=== PATIENT | male | born 1945 | race Caucasian/White ===

== ENCOUNTER 2019-10-04 21:00 | Inpatient (IN) ==
--- NOTE | 2019-10-04 22:03 | Diag Imaging Result Doc PS360 ---
EXAM: CHEST-2 VIEWS - 10/04/2019 HISTORY: flu like sx TECHNIQUE: Chest two views COMPARISON: 03/15/2019 FINDINGS: Heart size is normal. There are COPD/emphysematous changes. There is mild prominence of infrahilar markings compared to prior which may relate to COPD exacerbation or mild pneumonitis. There is no dense consolidation, pleural effusion, or pneumothorax identified. IMPRESSION: COPD/emphysematous changes. Mild prominence of infrahilar markings compared to prior which may relate to COPD exacerbation or pneumonitis. No dense consolidation. Electronically signed by Eris Newberry 10/04/2019 10:01 PM
[2019-10-04 22:20] LABS: BASO# 0.01 X1000 (0.0-0.2); BASO% 0.1 % (0.0-0.8); EOS# 0.01 X1000 (0.0-0.7); EOS% 0.1 % (0.0-10.0); HEMATOCRIT 44.1 % (42.0-52.0); HEMOGLOBIN 14.6 g/dL (14.0-18.0); IMM GRAN# 0.03 X1000 (0.0-0.04); IMM GRAN% 0.3 % (0.0-0.5); LYMPH# 0.63 X1000 (1.2-3.4); MCH 32.8 PG (27-31); MCHC 33.1 g/dL (33-37); MCV 99.1 FL (81-99); MONO# 0.66 X1000 (0.11-0.59); MONO% 6.3 % (1.7-9.3); MPV 10.4 FL (7.4-10.4); NEUT# 9.08 X1000 (1.4-6.5); NEUT% 87.2 % (42.2-75.2); PLT 118 X1000 (130-400); RBC 4.45 XMIL (4.7-6.1); RDW 13.2 % (11.5-14.5); WBC 10.42 X1000 (4.8-10.8)
[2019-10-04 22:35] LABS: AGAP 13; ALBUMIN 4.4 g/dL (3.5-5.0); ALKALINE PHOSPHATASE 90 U/L (32-122); BUN 20 mg/dL (8-22); CHLORIDE 103 mmol/L (98-107); COSMO 281; ESTIMATED GFR > 60; GLUCOSE 110 mg/dL (70-104); GOT 16 U/L (10-34); GPT 10 U/L (10-44); POTASSIUM 4.2 mmol/L (3.5-5.1); SODIUM 139 mmol/L (136-145); TCO2 23 mmol/L (25-35); TOTAL PROTEIN 7.7 g/dL (6.3-8.3)
[2019-10-04 22:37] LABS: INFLUENZA A NEGATIVE (NEGATIVE); INFLUENZA B NEGATIVE (NEGATIVE)
[2019-10-04] MEDS ORDERED: DUONEB (A & A) INH ONE (23:04)
[2019-10-04] MEDS ORDERED: MOTRIN PO ONE (23:04)
[2019-10-04] MEDS ORDERED: NS 1,000 ML IV ONE ×2 (23:05)
[2019-10-04] MEDS ORDERED: NS 1,000 ML ONE (23:12)
[2019-10-04] MEDS ORDERED: NS 50 ML ONE (23:13)
[2019-10-04] MEDS ORDERED: ROCEPHIN 1 GM in NS 50 ML IV SCH (23:15)
[2019-10-04] MEDS ORDERED: ZITHROMAX 500 MG/NS 500 MG/250 ML IVPB IV SCH (23:15)
[2019-10-04 23:50] LABS: BILIRUBIN URINE NEGATIVE (NEGATIVE); BLOOD URINE 4+ (NEGATIVE); CLARITY CLEAR (CLEAR); COLOR YELLOW; GLUCOSE URINE NEGATIVE (NEGATIVE); KETONE URINE TRACE mg/dL (NEGATIVE); LEUKOCYTES URINE NEGATIVE (NEGATIVE); NITRITE URINE NEGATIVE (NEGATIVE); PROTEIN URINE 1+(30 mg/dL) mg/dL (NEGATIVE); SP GRAVITY URINE 1.015; UROBILINOGEN URINE NORMAL
[2019-10-04 23:56] LABS: URINE BACTERIA 2+ /HFP; URINE RBC 20-40 /HPF (<10); URINE SOURCE CLEAN CATCH; URINE YEAST PRESENT /HPF
[2019-10-04 23:58] LABS: URINE WBC <10 /HPF (<10)
--- NOTE | 2019-10-05 00:34 | PROVIDER DOCUMENTATION ---
This chart was entered by James Barfield Scribe, acting as scribe for Sridevi Stacy MD. HPI-General Adult - General Chief Complaint: Flu Symptoms Stated Complaint: FLU LIKE SYMPTOMS Time Seen by Provider: 10/04/19 22:11 Source: patient Allergies/Adverse Reactions: Patient Allergies Allergy/AdvReac Type Severity Reaction Status Date / Time No Known Allergies Allergy Verified 10/04/19 22:05 Home Medications: Home Medication List Medication Instructions Recorded Confirmed Last Taken Type Sildenafil [Viagra] 50 mg PO PRN PRN #14 tablet 03/04/16 10/21/17 Unknown Rx Ondansetron [Zofran] 4 mg PO Q6H PRN PRN #20 tablet 07/11/16 10/21/17 Unknown Rx Tramadol [Ultram] 50 mg PO Q8HR #20 tablet 07/11/16 10/21/17 Unknown Rx Gabapentin 300 mg PO TID #90 capsule 07/18/16 10/21/17 Unknown Rx Ipratropium/Albuterol INH 1 puff INH RTQ6H #1 inhaler 10/20/16 10/21/17 Unknown Rx [Combivent Respimat Inhaler] Mometasone Furoate 220 Mcg INH 1 puff INH RTBID #1 inhaler 10/20/16 10/21/17 Unknown Rx [Asmanex 220 Microgm Inhaler] Amoxicillin/Pot Clavulanate 875 mg PO Q12HR #14 tab 10/23/17 Unknown Rx [Augmentin] Folic Acid 1 mg PO DAILY #90 tab 10/23/17 Unknown Rx Guaifenesin/Pse E.r. [Mucinex D] 1 each PO BID tablet 10/23/17 Unknown Rx Meclizine [Antivert] 25 mg PO TID PRN PRN #30 tab 10/23/17 Unknown Rx Oxycodone HCl/Acetaminophen 1 ea PO Q4-6H PRN PRN #20 tab 10/23/17 Unknown Rx [Percocet 10-325 mg Tablet] Thiamine [Vitamin B-1] 100 mg PO DAILY #30 tab 10/23/17 Unknown Rx Amoxicillin 875 mg PO BID #20 tab 03/15/19 Unknown Rx Prednisone 10 mg PO BID #8 tab 03/15/19 Unknown Rx - History of Present Illness -Gen Adult Nature of Presenting Problems: Pt is a 74 yom who presents to the ED with a CC of cold symptoms. Pt complains of a cough, body aches, and sinus congestion for three days. Pt reports taking over the counter medication for his symptoms and denies any relief. He endorses a cough with greenish sputum. He is current every day smoker. He denies any nausea, vomiting, diarrhea or dysuria. Location of Pain/Injury: reports: generalized Pain Radiation: reports: no radiation Quality of Pain: reports: aching Severity: reports: mild Onset/Duration: reports: 3 days ago Timing: reports: still present Associated Symptoms: reports: cough, muscle aches, sinus congestion/drainage Similar Symptoms Previously?: Yes Recently seen or treated by another doctor?: No Review of Systems - Adult - REVIEW OF SYSTEMS - ADULT Constitutional: reports: see HPI Eyes: reports: no symptoms reported Ears, Nose, Mouth & Throat: reports: see HPI, sinus problem Cardiovascular: reports: no symptoms reported Respiratory: reports: see HPI, cough, excessive sputum production Gastrointestinal: reports: abdominal pain Genitourinary: reports: no symptoms reported Musculoskeletal: reports: see HPI, muscle aches Integumentary: reports: no symptoms reported Neurological: reports: no symptoms reported Psychiatric: reports: no symptoms reported Endocrine: reports: no symptoms reported Hematologic/Lymphatic: reports: no symptoms reported Allergic/Immunologic: reports: no symptoms reported All Other Systems: Reviewed and Negative Past History - Adult - PAST MEDICAL HISTORY-ADULT Review of Records: reports: Old Records Reviewed, Nursing Assessment Review, Medications Reviewed, Social history reviewed & non-contributory. Major Childhood Illnesses: reports: denies history Cardiovascular: reports: denies history Respiratory: reports: bronchitis, COPD Gastrointestinal: reports: denies history Obstetrical/Gynecological: reports: denies history Genitourinary: reports: denies history, other (urgency). denies: prostatitis, prostate cancer Musculoskeletal: reports: other (chronic joint aches in neck and lower back). denies: chronic pain Neurological: reports: denies history Psychiatric: reports: denies history Endocrine/Immune: reports: denies history Other Conditions: reports: denies history - PRIOR SURGERIES/PROCEDURES Surgical/Procedure History: reports: orthopedic (extremity) - IMMUNIZATION STATUS Childhood Immunizations: See Nurse Assessment Flu Vaccine: See Nurse Assessment - FAMILY HISTORY Family History: reviewed, not pertinent - SOCIAL HISTORY Smoking: cigarettes, greater than 1 pack/day Substance Use: alcohol Alcohol Use Frequency: occasionally Physical Exam-General - PHYSICAL EXAM-ADULT Initial Vital Signs Reviewed: Yes - CONSTITUTIONAL General Appearance: alert, no apparent distress - EYES Eyes: PERRL/EOMI, pink conjunctivae - HEAD, EARS, NOSE, MOUTH & THROAT HENMT: normocephalic/atraumatic, moist mucous membranes - NECK Neck: non-tender, full range of motion - RESPIRATORY Respiratory: chest non-tender, decreased rate - CARDIOVASCULAR Cardiovascular: normal peripheral pulses, regular rate, rhythm, no edema - GASTROINTESTINAL (ABDOMEN) Abdominal Exam: non tender, soft - MUSCULOSKELETAL Extremity: normal range of motion, non-tender - SKIN Integumentary: normal color, warm/dry - NEUROLOGIC Neurologic: grossly normal, no motor/sensory deficits - PSYCHIATRIC Psych/Mental Status: normal mood/affect, normal thought content, normal thought process, oriented x 3 Progress - PLAN OF CARE/RESULTS Progress/Plan/Lab Results: Vital Signs - 8 hr 10/04/19 22:01 Temperature 100.6 F H Pulse Rate 95 H Respiratory Rate 20 Blood Pressure 168/82 O2 Sat by Pulse Oximetry 94 L Laboratory Results - last 24 hr 10/04/19 10/04/19 22:00 22:08 WBC 10.42 RBC 4.45 L Hgb 14.6 Hct 44.1 MCV 99.1 H MCH 32.8 H MCHC 33.1 RDW Std Deviation 13.2 Plt Count 118 L MPV 10.4 Immature Gran % (Auto) 0.3 Neut % (Auto) 87.2 H Lymph % (Auto) 6.0 L [place] % (Auto) 6.3 Eos % (Auto) 0.1 Baso % (Auto) 0.1 Immature Gran # (Auto) 0.03 Neut # (Auto) 9.08 H Lymph # (Auto) 0.63 L [place] # (Auto) 0.66 H Eos # (Auto) 0.01 Baso # (Auto) 0.01 Group A Strep Rapid NEGATIVE Orders Category Date Time Status CHEST-2 VIEWS [RAD] Stat Exams 10/04/19 21:42 Completed CBC WITH ELECTRONIC DIFF [HEME] Stat Lab 10/04/19 22:08 Completed COMPREHENSIVE METABOLIC PANEL [CHEM] Stat Lab 10/04/19 22:[address] Stat Lab 10/04/19 22:[address] Stat Lab 10/04/19 22:00 Received LACTATE, PLASMA [CHEM] Stat Lab 10/04/19 22:08 Received Patient is 74 y/o and initial SpO2 is 92% on room air. He was febrile to 100.6. He does not have a WBC but given his hx of COPD and his age and CXR concerning for COPD and possible pneumonitis offered admission vs outpatient treatment. He decided he wanted to stay in the hospital. His urine is negative and flu and strep were negative as well. No other acute abnormalities. Spoke to [facility] Vandana Jon who accepted patient for admission on behalf of Dr Avina. Patient stable for floor. Result Diagrams: 10/04/19 22:08 10/04/19 22:08 - XRAY 1 XRAY Study: Chest Impression: See EMR Report ( EXAM: CHEST-2 VIEWS - 10/04/2019 HISTORY: flu like sx TECHNIQUE: Chest two views COMPARISON: 03/15/2019 FINDINGS: Heart size is normal. There are COPD/emphysematous changes. There is mild prominence of infrahilar markings compared to prior which may relate to COPD exacerbation or mild pneumonitis. There is no dense consolidation, pleural effusion, or pneumothorax identified. IMPRESSION: COPD/emphysematous changes. Mild prominence of infrahilar markings compared to prior which may relate to COPD exacerbation or pneumonitis. No dense consolidation. Electronically signed by Eris Newberry 10/04/2019 10:01 PM 10/04/191 Interpreting Physician: Eris Newberry MD Dictated Date/Time: 10/04/19 [id number] cc: Sridevi Stacy MD; None,PCP) - CONSULTS/PCP/HOSPITALIST Notification #1 *Consult/PCP/Hospitalist*: Vandana Jon Time Discussed: 00:15 Consult Disposition: Admit Departure - Departure Date of Disposition Decision: 10/04/19 Time of Disposition Decision: 00:25 DIAGNOSIS: Pneumonia, Fever Disposition: ADMITTED INPATIENT 09 Certified Medical Emergency: Emergent Condition: Stable Additional Instructions: ED Follow Up Instructions: You have been treated by a care provider in the Emergency Department. These instructions are being provided to you so you can have an understanding of how to care for yourself upon discharge. Upon discharge from the Emergency Department, you are responsible for making arrangements for follow-up care by a physician of your choice. Take all prescribed medications as directed. Return to the Emergency Department immediately for any new or worsening symptoms . You may call the Physician Referral phone number at [phone] to obtain a list of Physicians who are taking new patients. Referrals and Follow-Ups: None,PCP [Primary Care Provider] - - Critical Care Note This patient required my direct & personal management of CC.: No Attestation - Physician/ FAY Attestation Patient care was provided by Advanced Practice Provider:: No The physician spent face to face time with patient:: Yes Advanced Practice Provider documentation review:: Supervising physician onsite and consulted in the evaluation and care of this patient. The physician did have a face to face encounter with the patient. This chart was documented by the indicated scribe, (James Barfield, Karrie) and accurately reflects the services I performed and decisions made by me, Sridevi Stacy MD, as attested by the provider's signature.
[2019-10-05] MEDS ORDERED: NS 1,000 ML IV ONE (00:43)
[2019-10-05] MEDS ORDERED: TYLENOL PO PRN (00:43)
[2019-10-05] MEDS ORDERED: ZOFRAN IV PRN (00:43)
[2019-10-05] MEDS ORDERED: DUONEB (A & A) ONE (02:40)
[2019-10-05] MEDS ORDERED: DUONEB (A & A) INH SCH (03:30)
[2019-10-05] MEDS: NICODERM PATCH TD SCH ×2 (10:25→22:07)
[2019-10-05] MEDS ORDERED: DIFLUCAN PO ONE (11:16)
--- NOTE | 2019-10-05 11:34 | HISTORY AND PHYSICAL ---
PRIMARY CARE PHYSICIAN: Dr. Nestor Burton. CHIEF COMPLAINT: A productive cough of green sputum, body aches, and sinus congestion over the past 3 days that progressively worsened. HISTORY OF PRESENTING ILLNESS: This is a 74-year-old, male who presents to [facility] ER with complaints of a productive cough of green sputum, body aches, and sinus congestion over the past 3 days that had progressively worsened. States that he took some [id number] medications for the symptoms but did not have any relief. He does continue to smoke a pack of cigarettes a day and has a history of COPD. His workup showed a chest x-ray to show COPD, emphysematous changes, and compared to his previous one on 03/15/2019, he may have a mild pneumonitis as well. No dense consolidation was noted but he will be admitted for further evaluation and treatment. PAST MEDICAL HISTORY: COPD, and chronic back and neck pain. PAST SURGICAL HISTORY: Right hand surgery and cataract surgery. FAMILY HISTORY: Reviewed and noncontributory. SOCIAL HISTORY: He currently lives with his family. He is a pack a day smoker. Denied any alcohol or illicit drug use. ALLERGIES: He has no known drug allergies. HOME MEDICATIONS: He takes Trelegy Ellipta 100/62.5/25 one puff inhalation daily. LABORATORY DATA: Showed a white blood cell count of 10.42, hemoglobin 14.6, hematocrit 44.1, platelets 118,000. Sodium 139, potassium 4.2, chloride 103, CO2 of 23, BUN of 20, creatinine 1, glucose 110. ProBNP of 309. Plasma lactate of 1. Urinalysis was negative except for 4+ blood, 2+ bacteria, and some yeast present. Influenza A and B were both negative, and group A strep was negative. Chest x-ray showed an impression of COPD, emphysematous changes, mild prominence of infrahilar markings compared to prior on 03/15/2019 which may relate to COPD exacerbation or pneumonitis, but no dense consolidation. REVIEW OF SYSTEMS: He denied any fever, chills. He did have body aches, sinus congestion, a productive cough of green sputum. Denied any shortness of breath, chest pain, abdominal pain, constipation, diarrhea, nausea, vomiting, or burning or hurting with urination. PHYSICAL EXAMINATION: VITAL SIGNS: On arrival, he had a temperature of 100.6 degrees, pulse 95, respirations 20, blood pressure 168/82, saturating 94% on room air. GENERAL: This is a 74-year-old, male who is lying in the bed. Answers questions appropriately. HEENT: Normocephalic, atraumatic. Normal ENT inspection. Oropharynx and nares are clear. Eyes: Pupils are equal, round, and reactive to light and accommodation. Extraocular movements are intact. NECK: Normal inspection. Normal range of motion. LUNGS: Clear to auscultation bilaterally with equal lung expansion and chest wall movement. HEART: Regular rate and rhythm. No murmurs, rubs, or gallops. ABDOMEN: Soft, nontender, nondistended. Bowel sounds are present x4 quadrants. MUSCULOSKELETAL: He had 5/5 strength x4 extremities. NEUROLOGICAL: The cranial nerves 2-12 appear grossly intact. ASSESSMENT: 1. An acute chronic obstructive pulmonary disease exacerbation. 2. Pneumonitis. 3. Urinary mica. 4. Tobacco abuse. PLAN: He was admitted to the medical unit, placed on telemetry, O2 per protocol, regular diet. Blood cultures and urine cultures are pending. He is on DuoNebs q.4 hours, nicotine patch 21 mg transdermally daily, Rocephin 1 gram IV q.24, azithromycin 500 IV q.24. He did receive some IV fluids in the emergency room but I do not feel that is needed to continue at this time. We will continue his home medications. We discussed smoking cessation with this patient, who verbalized understanding. We will recheck a CBC and BMP in the a.m. We will also place him on Diflucan 200 mg p.o. x1 dose now. Further orders after seen by attending. Dictated by APRIL Albright for Jaxon Avina MD cc: APRIL Albright MD Jay Pohl, MD
[2019-10-05] MEDS: DUONEB (A & A) INH SCH ×4 (11:38→23:27)
[2019-10-05] MEDS: NON-FORMULARY BULK MED INH SCH (11:38)
[2019-10-05] MEDS ORDERED: DUONEB (A & A) INH PRN (14:39)
--- NOTE | 2019-10-05 14:57 | HISTORY AND PHYSICAL ---
ADDENDUM: SUBJECTIVE: The patient came in with cough, body aches. He was found to have COPD exacerbation, possibly early pneumonitis. Lungs are pretty clear, although he is not moving a lot of air. Clinically, though, he has improved. We will continue breathing treatments, antibiotics. I anticipate discharge tomorrow if he is stable. cc: Jaxon Avina MD
[2019-10-05] MEDS ORDERED: FLONASE NAS SCH (17:00)
[2019-10-05] MEDS ORDERED: ZITHROMAX 500 MG/NS 500 MG/250 ML IVPB IV SCH (21:00)
[2019-10-05] MEDS: FLONASE NAS SCH (21:33)
[2019-10-05] MEDS ORDERED: ROCEPHIN 1 GM in NS 50 ML IV SCH (22:00)
[2019-10-06] MEDS: DUONEB (A & A) INH SCH ×3 (03:11→11:40)
[2019-10-06 05:21] VITALS: BP 154/78
[2019-10-06] MEDS ORDERED: LOVENOX SUBQ SCH (06:00)
[2019-10-06 06:10] LABS: AGAP 10; BUN 15 mg/dL (8-22); CALCIUM 8.2 mg/dL (8.8-10.2); CHLORIDE 110 mmol/L (98-107); COSMO 286; ESTIMATED GFR > 60; GLUCOSE 107 mg/dL (70-104); POTASSIUM 3.5 mmol/L (3.5-5.1); SODIUM 143 mmol/L (136-145); TCO2 23 mmol/L (25-35)
[2019-10-06 06:14] LABS: BASO# 0.01 X1000 (0.0-0.2); BASO% 0.2 % (0.0-0.8); EOS# 0.04 X1000 (0.0-0.7); EOS% 0.6 % (0.0-10.0); HEMATOCRIT 34.7 % (42.0-52.0); HEMOGLOBIN 11.2 g/dL (14.0-18.0); IMM GRAN# 0.02 X1000 (0.0-0.04); IMM GRAN% 0.3 % (0.0-0.5); LYMPH# 0.96 X1000 (1.2-3.4); LYMPH% 14.7 % (20.5-51.1); MCH 32.3 PG (27-31); MCHC 32.3 g/dL (33-37); MONO# 0.46 X1000 (0.11-0.59); MPV 10.3 FL (7.4-10.4); NEUT# 5.06 X1000 (1.4-6.5); NEUT% 77.2 % (42.2-75.2); PLT 113 X1000 (130-400); RBC 3.47 XMIL (4.7-6.1); RDW 13.1 % (11.5-14.5); WBC 6.55 X1000 (4.8-10.8)
--- NOTE | 2019-10-06 06:56 | Diag Imaging Result Doc PS360 ---
CHEST-2 VIEWS - 10/06/2019 INDICATION: hypoxia COMPARISON: 10/04/2019 FINDINGS: Stable advanced COPD. No infiltrates. Heart size is normal. No pneumothorax or pleural effusion. IMPRESSION: Advanced COPD. Electronically signed by Milan Mathis 10/06/2019 6:53 AM
[2019-10-06] MEDS ORDERED: PRILOSEC PO SCH (07:00)
[2019-10-06] MEDS: NON-FORMULARY BULK MED INH SCH (07:59)
[2019-10-06] MEDS: FLONASE NAS SCH (08:06)
[2019-10-06] MEDS: NICODERM PATCH TD SCH (08:07)
[2019-10-06] MEDS ORDERED: FLONASE NAS SCH (09:00)
--- NOTE | 2019-10-07 08:00 | DISCHARGE SUMMARY ---
ADMISSION DATE: 10/05/2019 DISCHARGE DATE: 10/06/2019 DISCHARGE DIAGNOSES: 1. Chronic obstructive pulmonary disease exacerbation. 2. Persistent tobacco use. 3. Pneumonitis. HOSPITAL COURSE: This is a 75-year-old male presenting with shortness of breath and cough, productive sputum. He has a history of COPD. He has a longstanding history of smoker, smoking tobacco probably at least a 40 pack year history, if not more. He was empirically placed on steroids, Rocephin, azithromycin, and he was watched. His lung exam was fairly clear. His chest x-ray was negative, although he had advanced COPD. He was breathing comfortably the following day and I felt stable for discharge. I was advised for smoking cessation. At discharge, he was given Trilogy which he has been using daily, Omnicef 300 b.i.d. for another 7 days, prednisone taper, and Robitussin AC for cough. DISCHARGE CONDITION: Stable. DISCHARGE INSTRUCTIONS: He was told to follow up with his PCP, who is Dr. Nestor Burton, return for worsening shortness of breath or cough. Less than 30 discharge. cc: Jaxon Avina MD
== END 2019-10-06 14:15 | disposition home or self-care (01) | DRG 191 ==
LOC: P.ED 21:00 → P.MEDSURG 10-05 01:28
PROVIDERS: ATTEND Internal Medicine

== ENCOUNTER 2020-02-04 12:53 | Observation (INO) ==
[2020-02-04] MEDS ORDERED: NS 1,000 ML IV ONE (13:52)
[2020-02-04 14:11] LABS: BASO# 0.02 X1000 (0.0-0.2); BASO% 0.1 % (0.0-0.8); EOS# 0.04 X1000 (0.0-0.7); EOS% 0.2 % (0.0-10.0); HEMATOCRIT 46.1 % (42.0-52.0); HEMOGLOBIN 15.3 g/dL (14.0-18.0); IMM GRAN# 0.08 X1000 (0.0-0.04); IMM GRAN% 0.3 % (0.0-0.5); LYMPH# 1.69 X1000 (1.2-3.4); LYMPH% 6.5 % (20.5-51.1); MCH 32.9 PG (27-31); MCHC 33.2 g/dL (33-37); MCV 99.1 FL (81-99); MONO# 1.16 X1000 (0.11-0.59); MONO% 4.5 % (1.7-9.3); MPV 10.1 FL (7.4-10.4); NEUT# 22.92 X1000 (1.4-6.5); NEUT% 88.4 % (42.2-75.2); PLT 141 X1000 (130-400); RBC 4.65 XMIL (4.7-6.1); RDW 13.8 % (11.5-14.5); WBC 25.91 X1000 (4.8-10.8)
--- NOTE | 2020-02-04 14:15 | Diag Imaging Result Doc PS360 ---
CHEST-PORTABLE - 02/04/2020 INDICATION: stroke like symptoms COMPARISON: 01/24/2020 FINDINGS: The lungs are normally expanded and clear. Heart size and mediastinal contours are normal. No pneumothorax or pleural effusion. IMPRESSION: Negative exam. Electronically signed by Milan Mathis 02/04/2020 2:13 PM
[2020-02-04 14:19] LABS: INR 1.19; PROTIME 15.2 Seconds (11.0-16.0)
--- NOTE | 2020-02-04 14:23 | EKG Report ---
Test Performed on : 02/04/2020 1:51:07 PM Test Reason : Stroke like symptoms Blood Pressure : / mmHG Vent. Rate : 058 BPM Atrial Rate : 058 BPM P-R Int : 172 ms QRS Dur : 130 ms QT Int : 412 ms P-R-T Axes : 087 259 011 degrees QTc Int : 404 ms Sinus bradycardia. Right bundle branch block Abnormal ECG When compared with ECG of 24-JAN-2020 18:34, (Unconfirmed) fusion complexes are no longer present premature supraventricular complexes. are no longer present NE interval has decreased Vent. rate has decreased BY 70 BPM Right bundle branch block is now present Unconfirmed Result
--- NOTE | 2020-02-04 14:27 | Diag Imaging Result Doc PS360 ---
EXAM: CT HEAD W/O CONTRAST 02/04/2020 HISTORY: stroke like symptoms TECHNIQUE: This exam was performed using automated exposure control, adjustment of mA or kV according to patient size, and/or use of iterative reconstruction technique. COMMENT: There is fluid in the left sphenoid sinus. There is mild generalized cerebral atrophy. There are calcifications in the globus pallidus bilaterally. There is no evidence of bleed, mass effect, or abnormal extra-axial fluid collection. Compared to 10/21/2017 there has been no significant change. IMPRESSION: No evidence of acute intracranial disease. Left sphenoid sinusitis. Electronically signed by Omar Marino 02/04/2020 2:25 PM
[2020-02-04 14:52] LABS: AGAP 10; ALB/GLOB RATIO 1.5; ALBUMIN 3.4 g/dL (3.5-5.0); ALKALINE PHOSPHATASE 87 U/L (32-122); BUN 28 mg/dL (8-22); CALCIUM 8.3 mg/dL (8.8-10.2); CHLORIDE 104 mmol/L (98-107); COSMO 287; ESTIMATED GFR > 60; GLUCOSE 104 mg/dL (70-104); GOT 14 U/L (10-34); GPT 18 U/L (10-44); POTASSIUM 4.4 mmol/L (3.5-5.1); SODIUM 141 mmol/L (136-145); TCO2 27 mmol/L (25-35); TOTAL BILIRUBIN 1.19 mg/dL (0.20-1.00); TOTAL PROTEIN 5.7 g/dL (6.3-8.3)
[2020-02-04 15:28] LABS: URINE SOURCE CLEAN CATCH
[2020-02-04] MEDS ORDERED: VANCOMYCIN 1 GM/NS 1 GM/250 ML IVPB IV ONE (15:32)
[2020-02-04] MEDS ORDERED: ZOSYN 4.5 GM in NS 100 ML IV ONE (15:32)
[2020-02-04] MEDS ORDERED: DUONEB (A & A) INH ONE (15:32)
[2020-02-04 15:38] LABS: BILIRUBIN URINE NEGATIVE (NEGATIVE); BLOOD URINE SMALL (NEGATIVE); COLOR YELLOW; GLUCOSE URINE NEGATIVE (NEGATIVE); KETONE URINE NEGATIVE (NEGATIVE); LEUKOCYTES URINE NEGATIVE (NEGATIVE); NITRITE URINE NEGATIVE (NEGATIVE); PH URINE 6.5; PROTEIN URINE TRACE mg/dL (NEGATIVE); SP GRAVITY URINE 1.021; TURBIDITY URINE CLEAR (CLEAR); UROBILINOGEN URINE NORMAL (NORMAL)
[2020-02-04 15:41] LABS: UR EPITHELIAL CELLS <10 /HPF (<10); URINE BACTERIA NEGATIVE /HPF; URINE CASTS NONE SEEN; URINE CRYSTALS NONE SEEN; URINE RBC <10 /HPF (<10); URINE SMALL ROUND CELLS NONE SEEN; URINE WBC <10 /HPF (<10); URINE YEAST NONE SEEN
[2020-02-04 15:58] LABS: UR AMPHETAMINES QUAL NONE DETECTED (NONE DETECT); UR BARBITUATES QUAL NONE DETECTED (NONE DETECT); UR BENZODIAZEPIN QUAL NONE DETECTED (NONE DETECT); UR CANNABINOIDS QUAL PRESUMPTIVE POSITIVE (NONE DETECT); UR COCAINE QUAL NONE DETECTED (NONE DETECT); UR METHADONE QUAL NONE DETECTED (NONE DETECT); UR OPIATES QUAL NONE DETECTED (NONE DETECT); UR OXYCODONE QUAL NONE DETECTED (NONE DETECT); UR PCP QUAL NONE DETECTED (NONE DETECT)
--- NOTE | 2020-02-04 17:31 | HISTORY AND PHYSICAL ---
HISTORY OF PRESENT ILLNESS: He apparently had angina, a myocardial infarction a little less than 10 days ago on the 4th. I think in [place] they placed a stent. He tolerated that well, came home. Yesterday he noted his right hand and leg seemed a little weak and seemed to get better and then today he had more weakness come back and his right arm and leg. Daughter stated he was dragging his leg. He denies any trouble with speech or vision. Denies any chest pain or palpitations. No tonic-clonic activity. On exam, it is a very subtle, but there is a little weakness in the right side compared to the left, but he has 4+ strength in all motor groups in both sides. The left is probably 5/5. His shoulder shrug is equal. His cervical muscles are equal. He has a history of lower back arthritis and cervical arthritis. He has a history of COPD and chronic back and neck pain. He has some radicular pain in that right leg, so he says his right leg always feels a little different. He has had right hand surgery and cataract surgery. He is on Plavix and aspirin at this time. SOCIAL HISTORY: He currently lives with his son and and he is a 1 pack-a-day smoker. Denies any alcohol or illicit drugs. ALLERGIES: No known drug allergies. 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 REVIEW OF SYSTEMS: General: No weight gain or loss. No fever or chills. HEENT: Unremarkable. No change in hearing or visual acuity. Respiratory: No increased work of breathing or dyspnea. Cardiovascular: No chest pain or tachy palpitation. Gastrointestinal/Genitourinary: No change in GI or bowel habits or urination. No gross hematuria. No hematochezia. Musculoskeletal/Neurologic: Neurologic no real focal changes other than above subtle change in his right arm and leg. He has an old brain MRI on 10/22/2017. No recent infarct. Left maxillary sinusitis at that time and CT of the head done today without contrast no evidence of acute intracranial disease. Left sphenoid sinusitis appreciated. His chest x-ray negative. No sign of infiltrates. PHYSICAL EXAMINATION: Temperature 97.7 degrees. He is awake, alert, oriented x3. Pulse 62, respirations 20, blood pressure 95/60. Pupils are equal. NECK: No distended neck veins. Carotid, radial, femoral pulses and pedal pulses 2+ and symmetrical. Supple. No thyromegaly. ABDOMEN: Nondistended. CARDIOVASCULAR: Regular rhythm and rate. PMI nondisplaced. No murmur or S3 appreciated. LUNGS: Clear in all lung travis anterolateral. NEUROLOGIC EXAM: Cranial nerves 2-12 intact. Motor strength seems to be pretty symmetrical in the upper extremities and lower extremities. 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 SKIN: Warm and dry. LABORATORY DATA: White count 25,910, hematocrit is 46, platelet count 141,000. Sodium 141, potassium 4.4, chloride 104, BUN 28, creatinine 1.0, blood sugar 104. AST is 14, ALT is 18, alkaline phosphatase is 87. Troponin was 318. He just had stent placement on the 4th, so it is not unexpected. ProBNP was 1095. Albumin was 3.4. ProTime 15.2, PTT is 35. Urine drug screen presumptive positive for cannabinoids, otherwise unremarkable. Urine is clear. Chest x-ray unremarkable. Head CT without contrast unremarkable. ASSESSMENT AND PLAN: 1. Possible transient ischemic attack or even small cerebrovascular accident on the left hemisphere. We are going to check noninvasive carotid studies of his neck. We will check an echocardiogram. I put him on a monitor make sure not going into atrial fib or flutter. He is already on aspirin and Plavix, so I do not see anything else to change at this point. His white blood cell count was a little elevated, but I think that is probably demargination. He is also on methylprednisone. 2. Apparently history of chronic obstructive pulmonary disease. He is taking Trelegy and some steroid and bronchodilators, which we will continue. He is also on prednisone 10 mg a day. 3. Neck and back pain with some radicular pain history in the past. We will make sure that we have Physical Therapy evaluate and make sure there is no significant loss of strength on that side. We will get an echocardiogram and carotid Doppler to make sure there is no embolic source. I do not see where he is on any blood pressure medications at this time, but I was under the understanding he is on aspirin and Plavix and will certainly continue those aspirin 81 mg a day, Plavix 75 mg once a day. We will get physical therapy and Occupational therapy to evaluate. cc: Luca Handy MD
--- NOTE | 2020-02-04 17:52 | PROVIDER DOCUMENTATION ---
This chart was entered by Lisa Angela Scribe, acting as scribe for Osmar Gee MD. HPI-Neurological Disorder - General Chief Complaint: Post Op Complaint Stated Complaint: "STROKE SYMPTOMS" PER PT Time Seen by Provider: 02/04/20 13:29 Source: patient, family (daughter) Allergies/Adverse Reactions: Patient Allergies Allergy/AdvReac Type Severity Reaction Status Date / Time No Known Allergies Allergy Verified 10/04/19 22:05 Home Medications: Home Medication List Medication Instructions Recorded Confirmed Last Taken Type Fluticasone/Umeclidin/Vilanter 1 puff INH DAILY 10/05/19 10/05/19 Unknown History [Trelegy Ellipta 100-62.5-25] CefDINIR [Omnicef] 300 mg PO BID #14 cap 10/06/19 Unknown Rx Guaifenesin/Codeine [Robitussin-AC] 5 ml PO Q4H PRN PRN #250 udc 10/06/19 Unknown Rx Prednisone 10 mg PO DAILY #1 tab.ds.pk 10/06/19 Unknown Rx Acetaminophen/Diphenhydramine 1 ea PO Q6HR PRN #14 tab 01/24/20 Unknown Rx [Percogesic 325-12.5 mg Tablet] Methylprednisolone [Medrol Dosepak] 4 mg PO DIRECTED #1 pkg 01/24/20 Unknown Rx - History of Present Illness-Neuro Nature of Presenting Problem: 74 yowm presents to the ed with his daughter for sensation change and heaviness in RUE and RLE onset this am when pt woke. pt had Sunday a RCA stent and on exam pt has ecchymosis noted to suprapubic area and anterior thigh. daughter sts she noted pt having a bit of issue with ambulation this am. pt sts he can walk fine and just has the numbness and heaviness to RUE and RLE. pt is nontoxic in appearance Severity: reports: moderate Onset/Duration: reports: this morning Timing: reports: still present, constant Context: reports: other (numbness and heaviness). denies: impaired speech, falling, seizure activity Character of Altered Mental Status: reports: N/A Any recent trauma/injury?: reports: none Character of Deficits: reports: altered sensation New weakness or altered sensation location:: reports: RUE, RLE Cognitive Baseline: alert, oriented x3 Gait Baseline: walks without assistance Associated Symptoms: reports: numbness in legs/feet. denies: headache, dizziness, chest pain, neck/back pain, fever/chills, nausea, slurred speech, vomiting, vision changes Similar Symptoms Previously?: No Recently seen or treated by another doctor?: Yes (recent sx on sunday RCA stent @ [facility]) Review of Systems - Adult - REVIEW OF SYSTEMS - ADULT Constitutional: denies: chills, fever Eyes: reports: no symptoms reported Ears, Nose, Mouth & Throat: reports: no symptoms reported Cardiovascular: denies: chest pain, palpitations Respiratory: denies: shortness of breath, wheezing Gastrointestinal: denies: abdominal pain, diarrhea, nausea, vomiting Genitourinary: reports: no symptoms reported Musculoskeletal: denies: back pain, neck pain Integumentary: reports: no symptoms reported Neurological: reports: see HPI, numbness. denies: ataxia, dizziness/vertigo, headache/migraines, syncope, tremors Psychiatric: reports: no symptoms reported Endocrine: reports: no symptoms reported Hematologic/Lymphatic: reports: no symptoms reported Allergic/Immunologic: reports: no symptoms reported All Other Systems: Reviewed and Negative Past History - Adult - PAST MEDICAL HISTORY-ADULT Review of Records: reports: Old Records Reviewed, Nursing Assessment Review, Medications Reviewed, Social history reviewed & non-contributory. Major Childhood Illnesses: reports: denies history Cardiovascular: reports: CAD Respiratory: reports: bronchitis, COPD Gastrointestinal: reports: denies history Genitourinary: reports: denies history, other (urgency). denies: prostatitis, prostate cancer Musculoskeletal: reports: other (chronic joint aches in neck and lower back). denies: chronic pain Neurological: reports: denies history Psychiatric: reports: denies history Endocrine/Immune: reports: denies history Other Conditions: reports: denies history - PRIOR SURGERIES/PROCEDURES Surgical/Procedure History: reports: recent surgery (had RCA stent palced), cardiac stent, orthopedic (extremity) - IMMUNIZATION STATUS Childhood Immunizations: See Nurse Assessment Flu Vaccine: See Nurse Assessment - FAMILY HISTORY Family History: reviewed, not pertinent - SOCIAL HISTORY Smoking: cigarettes, less than 1 pack/day Provider spent 3-5 mins advising pt. on dangers of tobacco.: Discussed manners to quit use, and f/u contacts for add'l counseling. Substance Use: alcohol Alcohol Use Frequency: occasionally Living Situation: alone Physical Exam- Neurological - Physical Exam-Neuro Initial Vital Signs Reviewed: Yes (noted BP-95/60) General Appearance: appears well, alert, no apparent distress, thin Eye Exam: bilateral eye: normal inspection, PERRL, EOMI HENMT: moist mucous membranes Head Injury: no evidence of injury Neck: non-tender, full range of motion, supple, normal inspection Respiratory: chest non-tender, rhonchi (scattered) Cardiovascular: regular rate, rhythm. 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 Exam: normal hearing, normal speech, PERRL Motor/Sensory: sensory deficit (mild on RUE and RLE) Neurologic: sensory deficit (mild RUE and RLE) Integumentary: normal color, normal turgor, warm/dry Psych/Mental Status: normal mood/affect, normal thought content, normal thought process, oriented x 3 - Glascow Coma Scale Best Eye Response: (4) open spontaneously Best Verbal Response: (5) oriented Best Motor Response: (6) obeys commands Total Glascow Score: 15 Progress - PLAN OF CARE/RESULTS Progress/Plan/Lab Results: Vital Signs - 8 hr 02/04/20 13:16 02/04/20 15:57 Temperature 97.7 F Pulse Rate 65 62 Respiratory Rate 20 20 Blood Pressure 95/60 O2 Sat by Pulse Oximetry 98 99 02/04/20 15:13 Influenza Screen - Final Nasopharyngeal Laboratory Results - last 24 hr 02/04/20 02/04/20 02/04/20 13:58 13:58 13:58 WBC RBC Hgb Hct MCV MCH MCHC RDW Std Deviation Plt Count MPV Immature Gran % (Auto) Neut % (Auto) Lymph % (Auto) Arroyo % (Auto) Eos % (Auto) Baso % (Auto) Immature Gran # (Auto) Neut # (Auto) Lymph # (Auto) Arroyo # (Auto) Eos # (Auto) Baso # (Auto) PT INR PTT (Actin FS) Sodium 141 Potassium 4.4 Chloride 104 Carbon Dioxide 27 Anion Gap 10 BUN 28 H Creatinine 1.0 Estimated GFR/1.73 m2 > 60 BUN/Creatinine Ratio 28 Glucose 104 POC Glucose Calculated Osmolality 287 Calcium 8.3 L Total Bilirubin 1.19 H AST 14 ALT 18 Alkaline Phosphatase 87 Troponin T High Sens 318 H* Mfa-L-Qjuureomksx Pept 1095 H Total Protein 5.7 L Albumin 3.4 L Globulin 2.3 Albumin/Globulin Ratio 1.5 Plasma Lactate Urine Source Urine Color Urine Turbidity Urine pH Ur Specific [place] Urine Protein Ur Glucose (Stick) Ur Ketones (Stick) Urine Blood Urine Nitrite Urine Bilirubin Urobilinogen Dipstick Urine Leukocytes Urine WBC (Auto) Urine RBC (Auto) U Epithel Cells (Auto) Urine Bacteria (Auto) Urine Crystals Small Round Cells Urine Casts Urine Yeast-like Cells Urine Opiates Screen Ur Oxycodone Screen Ur Methadone, Qual Ur Barbiturates Screen Ur Phencyclidine Scrn Ur Amphetamines Screen U Benzodiazepines Scrn Urine Cocaine Screen U Cannabinoids Screen 02/04/20 02/04/20 02/04/20 13:58 13:58 14:13 WBC 25.91 H RBC 4.65 L Hgb 15.3 Hct 46.1 MCV 99.1 H MCH 32.9 H MCHC 33.2 RDW Std Deviation 13.8 Plt Count 141 MPV 10.1 Immature Gran % (Auto) 0.3 Neut % (Auto) 88.4 H Lymph % (Auto) 6.5 L Arroyo % (Auto) 4.5 Eos % (Auto) 0.2 Baso % (Auto) 0.1 Immature Gran # (Auto) 0.08 H Neut # (Auto) 22.92 H Lymph # (Auto) 1.69 Arroyo # (Auto) 1.16 H Eos # (Auto) 0.04 Baso # (Auto) 0.02 PT 15.2 INR 1.19 PTT (Actin FS) 35.0 Sodium Potassium Chloride Carbon Dioxide Anion Gap BUN Creatinine Estimated GFR/1.73 m2 BUN/Creatinine Ratio Glucose POC Glucose 92 Calculated Osmolality Calcium Total Bilirubin AST ALT Alkaline Phosphatase Troponin T High Sens [id number]-Gfaoltbjgda Pept Total Protein Albumin Globulin Albumin/Globulin Ratio Plasma Lactate Urine Source Urine Color Urine Turbidity Urine pH Ur Specific [place] Urine Protein Ur Glucose (Stick) Ur Ketones (Stick) Urine Blood Urine Nitrite Urine Bilirubin Urobilinogen Dipstick Urine Leukocytes Urine WBC (Auto) Urine RBC (Auto) U Epithel Cells (Auto) Urine Bacteria (Auto) Urine Crystals Small Round Cells Urine Casts Urine Yeast-like Cells Urine Opiates Screen Ur Oxycodone Screen Ur Methadone, Qual Ur Barbiturates Screen Ur Phencyclidine Scrn Ur Amphetamines Screen U Benzodiazepines Scrn Urine Cocaine Screen U Cannabinoids Screen 02/04/20 02/04/20 02/04/20 15:09 15:20 15:20 WBC RBC Hgb Hct MCV MCH MCHC RDW Std Deviation Plt Count MPV Immature Gran % (Auto) Neut % (Auto) Lymph % (Auto) Arroyo % (Auto) Eos % (Auto) Baso % (Auto) Immature Gran # (Auto) Neut # (Auto) Lymph # (Auto) [place]o # (Auto) Eos # (Auto) Baso # (Auto) PT INR PTT (Actin FS) Sodium Potassium Chloride Carbon Dioxide Anion Gap BUN Creatinine Estimated GFR/1.73 m2 BUN/Creatinine Ratio Glucose POC Glucose Calculated Osmolality Calcium Total Bilirubin AST ALT Alkaline Phosphatase Troponin T High Sens Blf-Z-Vvtninjifaz Pept Total Protein Albumin Globulin Albumin/Globulin Ratio Plasma Lactate 1.1 Urine Source CLEAN CATCH Urine Color YELLOW Urine Turbidity CLEAR Urine pH 6.5 Ur Specific [place] 1.021 Urine Protein TRACE A Ur Glucose (Stick) NEGATIVE Ur Ketones (Stick) NEGATIVE Urine Blood SMALL A Urine Nitrite NEGATIVE Urine Bilirubin NEGATIVE Urobilinogen Dipstick NORMAL Urine Leukocytes NEGATIVE Urine WBC (Auto) <10 Urine RBC (Auto) <10 U Epithel Cells (Auto) <10 Urine Bacteria (Auto) NEGATIVE Urine Crystals NONE SEEN Small Round Cells NONE SEEN Urine Casts NONE SEEN Urine Yeast-like Cells NONE SEEN Urine Opiates Screen NONE DETECTED Ur Oxycodone Screen NONE DETECTED Ur Methadone, Qual NONE DETECTED Ur Barbiturates Screen NONE DETECTED Ur Phencyclidine Scrn NONE DETECTED Ur Amphetamines Screen NONE DETECTED U Benzodiazepines Scrn NONE DETECTED Urine Cocaine Screen NONE DETECTED U Cannabinoids Screen PRESUMPTIVE POSITIVE A Orders Category Date Time Status Cardiac Monitoring DIRECTED Care 02/04/20 13:50 Active Finger Stick Blood Sugar (ED) DIRECTED Care 02/04/20 13:50 Active Misc. NRSG Communication Order DIRECTED Care 02/04/20 13:50 Active Oxygen Therapy- ED Nursing DIRECTED Care 02/04/20 13:50 Active Saline Loc NOW Care 02/04/20 13:50 Active Heart Healthy Diet Diet 02/04/20 17:04 Active CHEST-PORTABLE [RAD] Stat Exams 02/04/20 13:[address] HEAD W/O CONTRAST [CT] Stat Exams 02/04/20 13:50 Completed BLOOD CULTURE [BLDCUL] Stat Lab 02/04/20 15:00 Results CBC WITH ELECTRONIC DIFF [HEME] Stat Lab 02/04/20 13:58 Completed COMPREHENSIVE METABOLIC PANEL [CHEM] Stat Lab 02/04/20 13:58 Completed INFLUENZA SCREEN A/B Stat Lab 02/04/20 15:13 Completed LACTATE, PLASMA [CHEM] Stat Lab 02/04/20 15:09 Completed LACTATE, PLASMA [CHEM] Stat Lab 02/04/20 18:09 Uncollected LACTATE, PLASMA [CHEM] Stat Lab 02/04/20 21:09 Uncollected PRO B-NATRIURETIC PEPTIDE Stat Lab 02/04/20 13:58 Completed PROTIME WITH INR [COAG] Stat Lab 02/04/20 13:58 Completed PTT [COAG] Stat Lab 02/04/20 13:58 Completed TROPONIN T HIGH SENSITIVITY Stat Lab 02/04/20 13:58 Completed URINALYSIS W/POSS RFLX CULT [URINALYSIS] Stat Lab 02/04/20 15:20 Completed URINE DRUG SCREEN Stat Lab 02/04/20 15:20 Completed URINE MANUAL MICROSCOPIC [URINALYSIS] Stat Lab 02/04/20 15:20 Completed 0.9% Sodium Chloride Inj [Ns] 1,000 ml Med 02/04/20 13:52 Discontinued IV 999 mls/hr Albuterol 2.5MG/Ipratrop 0.5MG [Duoneb (A & A)] Med 02/04/20 15:32 Discontinued 3 ml INH NOW ONE Piperacillin/Tazobactam [Zosyn] 4.5 gm Med 02/04/20 15:32 Discontinued 0.9% Sodium Chloride Inj [Ns] 100 ml IV NOW Vancomycin 1 gm/Ns Med 02/04/20 15:32 Discontinued 1 gm in 250 ml IV NOW Aerosol Treatments Routine Oth 02/04/20 15:33 Completed Aerosol Treatments Stat Oth 02/04/20 15:33 Completed EKG [EKG] Stat Ther 02/04/20 13:50 Draft Transfer/Admit Order [TRANSFER] Routine Transfer 02/04/20 16:37 Ordered Result Diagrams: 02/04/20 13:58 02/04/20 13:58 - REASSESSMENT Reassessment #1 Time Reassessed: 16:06 Status: improving (Given IVF, duoneb for wheeze/rhonchi, likely COPD, and IV Vanc/Zosyn secondary to extreme leukocytosis. Already took ASA/Plavix today. No change in neuro exam. DOes not qualify for TPA d/t symptoms on wake up, but should receive TIA/Stroke work up in ED) - EKG 1 Time of EKG reading by physician:: 13:51 EKG Read and Signed by:: Osmar Gee EKG Interpretation (*Must complete 3 of following elements*): Abnormal Rate: 58 Rhythm: sinus bradycardia [place]: normal QRS: RBB AR Interval: normal ST Wave: normal - XRAY 1 XRAY: Bilateral XRAY Study: Chest Impression: See EMR Report (CHEST-PORTABLE - 02/04/2020 INDICATION: stroke like symptoms COMPARISON: 01/24/2020 FINDINGS: The lungs are normally expanded a nd clear. Heart size and mediastinal contours are normal. No pneumothorax or pleural effusion. IMPRESSION: Negative exam. Electronically signed by Milan Mathis 02/04/2020 2:13 PM 02/04/20 1413 Interpreting Physician: Milan Mathis MD Dictated Date/Time: 02/04/20 1413 cc: Osmar Gee MD; Nestor Burton MD) - CT/MRI 1 CT Study: Head Impression: See EMR Report (EXAM: CT HEAD W/O CONTRAST 02/04/2020 HISTORY: stroke like symptoms TECHNIQUE: This exam was performed using automated exposure control, adjustment of mA or kV according to patient size, and/or use of iterative reconstruction technique. COMMENT: There is fluid in the left sphenoid sinus. There is mild generalized cerebral atrophy. There are calcifications in the globus pallidus bilaterally. There is no evidence of bleed, mass effect, or abnormal extra-axial fluid collection. Compared to 10/21/2017 there has been no significant change. IMPRESSION: No evidence of acute intracranial disease. Left sphenoid sinusitis. Electronically signed by Omar Marino 02/04/2020 2:25 PM 02/04/20 1425 Interpreting Physician: Omar Marino MD Dictated Date/Time: 02/04/20 1423 cc: Osmar Gee MD; Nestor Burton MD) - CONSULTS/PCP/HOSPITALIST Notification #1 *Consult/PCP/Hospitalist*: dr calles cardiology Time Discussed: 15:31 (spoke with socorro about pt with elevated trop and EKG's and dr calles agrees this pt can remain in house to be admitted ) Reason/Comments: will consult #2 Consult: hospitalist dr godinez Time Discussed: 16:18 (spoke with marbella) Consult Disposition: Will see in ED, Admit Departure - Departure Date of Disposition Decision: 02/04/20 Time of Disposition Decision: 17:51 DIAGNOSIS: Cerebrovascular accident (CVA) with right hemiparesis, Elevated troponin I level, Tobacco abuse, Leukocytosis (leucocytosis) COPD (chronic obstructive pulmonary disease) Qualifiers: COPD type: chronic bronchitis Chronic bronchitis type: simple Qualified Code(s): J41.0 - Simple chronic bronchitis Disposition: ADMITTED INPATIENT 09 Certified Medical Emergency: Emergent Condition: Fair Referrals and Follow-Ups: Nestor Burton MD [Primary Care Provider] - Discharge Education: Steps to Quit Smoking, [id number] - Critical Care Note This patient required my direct & personal management of CC.: Yes Total Time (mins): 45 Critical Care Statement: This patient required my direct personal management to treat or rule out processes, the absence of which, could potentiallly result in sudden, clinically significant life or limb threatening deterioration. Attestation - Physician/ FAY Attestation Patient care was provided by Advanced Practice Provider:: No The physician spent face to face time with patient:: Yes Advanced Practice Provider documentation review:: Supervising physician onsite and consulted in the evaluation and care of this patient. The physician did have a face to face encounter with the patient. - NIH Stroke Scale NIH Type: Initial Evaluation Level of Consciousness: 0-Alert LOC Questions (ask month and age): 0-Answers Both Correctly LOC Commands (ask to open & close eyes;make a fist, let go): 0-Obeys Both Correctly Best Gaze (horizontal eye movement): 0-Normal Visual (use finger movement, counting or visual threat): 0-No Visual Loss Facial Palsy (show teeth or raise eyebrows & close eyes tght: 0-Symmetrical Movement Motor Function-left arm: 0-Normal Motor Function-right arm: 0-Normal Motor Function-left le-Normal Motor Function-right le-Normal Limb Ataxia(skwmzo-qfid-nypasn, or heel to fox): 0-No Ataxia Sensory(pin prick to face,arms,trunk,legs-compare side/side): 1-Mild to Moderate Decrease in Sensation Best Language(name item/read sentence.Ex-Down to Earth): 0-No Aphasia Dysarthria(Pt read words or say words Ex.Mama,Tip-Top,Thanks: 0-Normal Articulation Extinction and Inattention: 0-Normal NIH Total Score: 1 Modified [place] Score Criteria: 1-no significant disability despite symptoms Stroke tPA Guidelines - Inclusion Criteria for IV tPA 18 years old or older: Yes Ischemic stroke with measurable deficit: Yes Onset <3 hours ago *OR* 3-4.5 hours ago: No - Exclusion Criteria for IV tPA Evidence of intracranial hemorrhage on CT: No Presentation suggest SAH: No CT reveals defined area of hypodensity: No Evidence of AVM, neoplasm, aneurysm: No Seizure at stroke onset: No Active internal bleeding or acute trauma: No Platelet Count Less Than 100,000: No Heparin Within Last 48 HRS (PTT >Lab normal limits): No INR > 1.7 (warfarin use): No Use IIB/IIIA inhibitors within 24 hours: No Serious Head Trauma Within Last 3 Months: No Arterial Puncture Within Last 7 Days: Yes (right femoral) Lumbar Puncture Within Last 7 Days: No - Additional Exclusion Criteria for IV tPA Currently on Coumadin: No Patient older than 80: No Prior stroke and diabetes: No Baseline NIHSS score > 25: No - Relative Contraindications to IV tPA CT reveals extensive area of infarct (>1/3 MCA territory): No Minor or rapidly improving stroke symptoms: Yes Major Surgery or Serious Trauma In Previous 14 Days: Yes AMI within 3 months: No Gastrointestinal or Urinary Tract hemorrhage in Past 21 Days: No Post - AMI pericarditis: No Blood Glucose Less Than 50 mg/dl or Greater Than 400 mg/dl: No - Consultation Candidate for:: NOT A CANDIDATE (multiple reasons) This chart was documented by the indicated scribe, (Lisa Angela Scribe) and accurately reflects the services I performed and decisions made by Marlen jenkins Kent A., MD, as attested by the provider's signature.
[2020-02-04] MEDS ORDERED: ZOFRAN IV PRN (21:25)
[2020-02-04] MEDS ORDERED: TYLENOL PO PRN (21:25)
[2020-02-04 22:44] LABS: FREE T4 1.4 ng/dL (0.93-1.70); TSH 2.15 uIUmL (0.27-4.20)
--- NOTE | 2020-02-05 09:37 | Diag Imaging Result Doc PS360 ---
MRI BRAIN W/O CONTRAST - 02/05/2020 INDICATION: tia vs cva COMPARISON: Head CT 02/04/2020 FINDINGS: There is no area of restricted diffusion. The ventricles and sulci are normal in size and contour. No intracranial mass or hemorrhage. Midline structures including the optic chiasm and pituitary are normal. IMPRESSION: Negative exam. Electronically signed by Milan Mathis 02/05/2020 9:34 AM
--- NOTE | 2020-02-05 13:12 | ECHO REPORT ---
ORDER DATE: 02/05/2020 INDICATION: TIA versus CVA, NM, COPD. FINDINGS: 1. The right atrium appears normal in size. 2. Mild tricuspid regurgitation. RV systolic pressure of 33. 3. Normal RV size and systolic function. 4. No significant pulmonic insufficiency. 5. Normal left atrial size with a volume index of 27. 6. No mitral valve prolapse. Trace mitral regurgitation. No evidence of mitral stenosis. 7. Normal LV size, end-diastolic dimension of 4.4 cm. Normal wall thicknesses with a posterior and interventricular septal wall thickness of 0.8 and 0.9 cm respectively. Normal LV systolic function. Estimated EF of 55%. There does appear to be some hypokinesis of the inferior wall at the base. Normal diastolic function. 8. The aortic valve opens well. No evidence of stenosis or insufficiency. 9. The aorta appears normal visualized segments. 10. No pericardial effusion identified. 11. Normal IVC size. cc: MD Janice Briggs CRNP
--- NOTE | 2020-02-05 16:13 | PROGRESS NOTE ---
DATE: 02/05/2020 SUBJECTIVE: Mr. Obrien was walking fine. He still feels a little weakness on that right side compared to left, but he feels good. Of course he wants to go home. OBJECTIVE: Vital signs: He remains afebrile. Temperature 98.2 degrees, pulse 95, respirations 20, blood pressure 153/71. HEENT: Pupils are equal and round. Lungs: Clear in all lung travis. Cardiovascular: Regular rhythm and rate without murmur or S3. Abdomen: Soft. Skin: Warm and dry. Urine output is 1300 mL. IMAGING: He had an echocardiogram with Doppler. Normal left ventricular size. Normal wall thickness. Ejection fraction 55%. May be some hypokinesis of the inferior wall at the base. Normal diastolic function. No significant valvular dysfunction appreciated. His carotid studies were done as well. I have not reviewed those. Brain MRI was negative, completely unremarkable. On the monitor he has remained in sinus rhythm. LABS: Reviewed. He had an elevated white count, but he was on steroid. We have not see any sign of bacterial infection. His thyroid was normal. Troponin was 318. He is not having any chest pain. No sign of coronary insufficiency. REVIEW OF HIS ORDERS: He is getting some vancomycin and Zosyn. He got 1 dose of Zosyn. He is getting vancomycin; he got 1 dose. In looking back at old cultures, his blood cultures from the are still pending. His influenza screen was negative. He has cultures though that go back to the and they still show no growth. There was no group A strep isolated. He is not on any prednisone at this time. I will recheck his CBC and we will check another troponin in the morning. If all of his tests look good, hopefully he can go home. In looking back at his orders at home, I am going to continue his aspirin and continue his Lipitor and his Plavix and his metoprolol. I think he was on doxycycline, so I will probably put him back on that too. cc: Luca Handy MD
[2020-02-05] MEDS: PLAVIX PO SCH (16:54)
[2020-02-05] MEDS: ASPIRIN EC PO SCH (16:54)
[2020-02-05] MEDS: LIPITOR PO SCH (16:54)
[2020-02-05] MEDS: DOXYCYCLINE PO SCH (21:16)
[2020-02-05] MEDS: LOPRESSOR PO SCH (21:16)
[2020-02-06] MEDS: ASPIRIN EC PO SCH (08:46)
[2020-02-06] MEDS: DOXYCYCLINE PO SCH (08:47)
[2020-02-06] MEDS: LOPRESSOR PO SCH (08:47)
[2020-02-06] MEDS: PLAVIX PO SCH (08:47)
[2020-02-06] MEDS: LIPITOR PO SCH (08:47)
[2020-02-06 11:40] VITALS: BP 118/65
--- NOTE | 2020-02-06 13:38 | DISCHARGE SUMMARY ---
ADMISSION DATE: 02/04/2020 DISCHARGE DATE: 02/06/2020 HOSPITAL COURSE: This is a 74-year-old patient of Dr. Nestor Burton. Apparently, history of angina, myocardial infarction, a little less than 10 days ago on the 01/28/2020. He came to [place], had a stent placed. Tolerated that well. He came home. He noticed his right hand and leg were weak and was concerned. Presented to the hospital, admitted for possible CVA. His right-sided strength did improve. He was positive for cannabinoids, but on his noninvasive carotid studies, his echocardiogram and his MRI of his head were unremarkable. He had no breathing trouble. No chest pain. No sign of cardiac ischemia and so felt he could go home on 02/06/2020. DISCHARGE MEDICATIONS: He will be on 1. Aspirin 81 mg a day. 2. Lipitor 40 mg a day. 3. Plavix 75 mg a day. 4. He is on doxycycline 100 mg b.i.d. 5. Lopressor 25 mg b.i.d. FOLLOWUP: Follow up with his primary care and Cardiology. cc: Luca Handy MD
--- NOTE | 2020-02-06 14:20 | Carotid Study ---
DATE: 02/05/2020 BILATERAL CAROTID DUPLEX: COMMERCIAL SHRIMPING CAPTAIN: Norma. REFERRING PHYSICIAN: Dr. López. INDICATIONS: TIA versus CVA. COMPARISON: Exam for comparison 10/21/2017. FINDINGS: Bilateral carotid artery systems were visualized along their course. There were mild focal areas of atherosclerotic changes but no significant plaque disease or hemodynamically significant lesion. Vertebrals are antegrade bilaterally. IMPRESSION: Mild degree of atherosclerotic changes noted bilaterally but no hemodynamically significant lesion. cc: MD Janice Alba CRNP
== END 2020-02-06 14:45 | disposition home or self-care (01) ==
LOC: ED 12:53 → EDIPHOLD 19:29 → INTOOBSV 19:29 → 3N 21:22
PROVIDERS: ATTEND Emergency Medicine